=== PATIENT | female | born 1975 | race Caucasian/White ===

== ENCOUNTER 2018-07-27 15:35 | Emergency (ER) | payer OTHER ==
[2018-07-27 19:00] LABS: Absolute Lymphocytes (CBC) 4.4 K/uL (0.7-4.9); Absolute Monocytes 0.5 K/uL (0.1-1.3); Absolute Neutrophil 5.8 K/uL (1.8-8.0); Basophils % 0.8 % (0-1.3); Eosinophils % 2.3 % (0-4.4); Hematocrit 37.9 % (36.0-45.0); Lymphocytes % 40.1 % (15.3-44.8); MPV 9.3 fL (7.6-11.3); Monocytes % 4.4 % (3.3-12.3)
[2018-07-27 19:01] LABS: Protime INR 1.09
--- NOTE | 2018-07-27 19:10 | RAD REPORT ---
EXAM DESCRIPTION: RAD - Chest Single View - 07/27/2018 6:53 pm CLINICAL HISTORY: CHEST PAIN Chest pain. COMPARISON: Chest Pa And Lat (2 Views) dated 11/12/2017; Chest Single View dated 05/26/2017; Chest Sin gle View dated 10/28/2015 FINDINGS: Portable technique limits examination quality. The lungs are grossly clear. The heart is normal in size. No displaced fractures. IMPRESSION: No acute intrathoracic process suspected.
--- NOTE | 2018-07-27 19:11 | EKG ---
Test Date: 2018-07-27 Test Time: 15:46:07 Space Systems Operations Manager: KEELY MEASUREMENT RESULTS: Intervals: Rate: 54 NE: 158 QRSD: 86 QT: 442 QTc: 419 [place]: P: 67 NE: 158 QRS: 64 T: 76 INTERPRETIVE STATEMENTS: Sinus bradycardia Otherwise normal ECG Compared to ECG 05/26/2017 10:13:36 Sinus arrhythmia no longer present Electronically Signed On 07-27-18 19:09:47 CDT by Eder Thomson
[2018-07-27 19:15] LABS: BUN Blood Urea Nitrogen 15 mg/dL (7-18); Bicarbonate 21 mmol/L (21-32); Glucose Level 94 mg/dL (74-106); NT PRO-BNP 52 pg/mL (<125); Potassium 3.6 mmol/L (3.5-5.1); Sodium Level 141 mmol/L (136-145); Troponin (Emerg Dept Use Only) < 0.02 ng/mL (0.0-0.045)
[2018-07-27 19:21] LABS: Urine Blood 1+ (NEG); Urine Glucose NEGATIVE (NEG); Urine Protein NEGATIVE (NEG); Urine Specific Gravity 1.015 (1.005-1.030)
--- NOTE | 2018-07-27 20:55 | ER ---
Nurse's Notes [facility] Name: Thomas Yates Age: 43 yrs Sex: Female : 1975 Arrival Date: 07/27/2018 Time: 15:38 Bed 24 Private MD: Diagnosis: Chest pain, unspecified Presentation: 07/27 15:43 Presenting complaint: Patient states: CP and L upper back pain that is tender, began ss yesterday. Transition of care: patient was not received from another setting of care. Onset of symptoms was July 26, 2018. Risk Assessment: Do you want to hurt yourself or someone else? Patient reports no desire to harm self or others. Initial Sepsis Screen: Does the patient meet any 2 criteria? No. Patient's initial sepsis screen is negative. Does the patient have a suspected source of infection? No. Patient's initial sepsis screen is negative. Care prior to arrival: None. 15:43 Method Of Arrival: Ambulatory ss 15:43 Acuity: SERGIO 3 ss Historical: - Allergies: 15:47 Codeine; ss - PMHx: 15:47 CAD; Anxiety; ss - PSHx: 15:47 Cardiac Stent; Partial hysterectomy; EYE SX; ss - Immunization history:: Adult Immunizations up to date. - Social history:: Smoking status: Patient/guardian denies using tobacco. - Ebola Screening: : Patient denies exposure to infectious person Patient denies travel to an Ebola-affected area in the 21 days before illness onset. - Family history:: not pertinent. - Hospitalizations: : No recent hospitalization is reported. Screenin:33 Abuse screen: Denies threats or abuse. Denies injuries from another. Nutritional rv screening: No deficits noted. Tuberculosis screening: No symptoms or risk factors identified. Fall Risk None identified. Assessment: 18:32 General: Appears in no apparent distress. comfortable, Behavior is calm, cooperative. rv Pain: Complains of pain in chest Pain radiates to left breast Pain began suddenly. Neuro: Level of Consciousness is awake, alert, obeys commands, Oriented to person, place, time, situation. Cardiovascular: Capillary refill < 3 seconds Rhythm is sinus bradycardia. Respiratory: Airway is patent. GI: No signs and/or symptoms were reported involving the gastrointestinal system. : No signs and/or symptoms were reported regarding the genitourinary system. EENT: No signs and/or symptoms were reported regarding the EENT system. Derm: Skin is intact. Musculoskeletal: No signs and/or symptoms reported regarding the musculoskeletal system. 20:22 Reassessment: Patient appears in no apparent distress at this time. Patient and/or rv family updated on plan of care and expected duration. Pain level reassessed. Patient is alert, oriented x 3, equal unlabored respirations, skin warm/dry/pink. Patient denies pain at this time. Vital Signs: 15:47 BP 120 / 78; Pulse 64; Resp 15; Temp 97.6(TE); Pulse Ox 99% on R/A; Weight 67.13 kg; ss Height 5 ft. 2 in. (157.48 cm); Pain 5/10; 19:00 BP 145 / 72; Pulse 42; Resp 15; Temp 98.4; Pulse Ox 100% ; rv 19:30 BP 115 / 64; Pulse 43; Resp 14; Pulse Ox 99% ; rv 15:47 Body Mass Index 27.07 (67.13 kg, 157.48 cm) ED Course: 15:38 Patient arrived in ED. mr 15:45 Triage completed. ss 15:46 EKG done, by construction technology instructor. reviewed by Manuel Cunningham MD. sm3 15:47 Arm band placed on left wrist. ss 18:20 Inserted saline lock: 20 gauge in right forearm, using aseptic technique. Blood rv collected. Patient maintains SpO2 saturation greater than 95% on room air. 18:24 Manuel Cunningham MD is Attending Physician. rn 18:31 Edison Li RN is Primary Nurse. rv 18:33 Patient has correct armband on for positive identification. Bed in low position. Call rv light in reach. Side rails up X 1. Adult w/ patient. security monitor on. Pulse ox on. NIBP on. 18:49 XRAY Chest (1 view) Sent. rv 18:52 XRAY Chest (1 view) In Process Unspecified. EDMS 18:55 Hernán Mcdonald PA is PHCP. cp 21:15 No provider procedures requiring assistance completed. IV discontinued, intact, rv bleeding controlled, No redness/swelling at site. Pressure dressing applied. Administered Medications: No medications were administered Outcome: 21:15 AMA AMA form signed rv 21:15 Condition: good 21:15 Discharge instructions given to Instructed on discharge instructions, follow up and referral plans. Demonstrated understanding of instructions. 21:16 Patient left the ED. rv Signatures: Dispatcher [employer] MAGI NeilPortia Octavio, MD MD yasmin Jackson Shelby RN RN Hernán Lin PA PA cp Montes, Shakira 3 Edison Li RN RN rv
--- NOTE | 2018-07-27 20:55 | EDPHYS ---
Physician Documentation [facility] Name: Thomas Yates Age: 43 yrs Sex: Female : 1975 Arrival Date: 07/27/2018 Time: 15:38 Bed 24 Private MD: ED Physician Manuel Cunningham HPI: 07/27 18:41 This 43 yrs old Female presents to ER via Ambulatory with complaints of Chest rn Pain. 18:41 The patient or guardian reports chest pain that is located primarily in the anterior rn chest wall, left. Onset: yesterday. The pain radiates to Associated signs and symptoms: The patient has no apparent associated signs or symptoms, Pertinent negatives: abdominal pain, cough, diaphoresis, lower extremity swelling, near syncope, palpitations, syncope, vomiting. The chest pain is described as stabbing. Duration: The patient or guardian reports multiple episodes, that are intermittent. Modifying factors: The symptoms are alleviated by nothing. the symptoms are aggravated by nothing. Severity of pain: At its worst the pain was mild in the emergency department the pain is unchanged. The patient has experienced a previous episode. Reports left sided chest pain, radiates to scapula and left shoulder, states feels worse with deep breath and touching area, no fever/cough/sob. Reports had cardiac stent placed several years ago, main symptom at that time was dyspnea. Reports thinks had negative angiogram a little more than a year ago. . Historical: - Allergies: 15:47 Codeine; ss - PMHx: 15:47 CAD; Anxiety; ss - PSHx: 15:47 Cardiac Stent; Partial hysterectomy; EYE SX; ss - Immunization history:: Adult Immunizations up to date. - Social history:: Smoking status: Patient/guardian denies using tobacco. - Ebola Screening: : Patient denies exposure to infectious person Patient denies travel to an Ebola-affected area in the 21 days before illness onset. - Family history:: not pertinent. - Hospitalizations: : No recent hospitalization is reported. ROS: 18:41 Constitutional: Negative for fever, chills, and weight loss, Eyes: Negative for injury, rn pain, redness, and discharge, Neck: Negative for injury, pain, and swelling, Cardiovascular: Negative for palpitations, and edema, Respiratory: Negative for shortness of breath, cough, wheezing Abdomen/GI: Negative for abdominal pain, nausea, vomiting, diarrhea, and constipation, Back: Negative for injury and pain, MS/Extremity: Negative for injury and deformity, Skin: Negative for injury, rash, and discoloration, Neuro: Negative for headache, weakness, numbness, tingling, and seizure. Exam: 18:40 ECG was reviewed by the Attending Physician. rn 18:41 Constitutional: This is a well developed, well nourished patient who is awake, alert, rn and in no acute distress. Head/Face: Normocephalic, atraumatic. Eyes: Pupils equal round and reactive to light, extra-ocular motions intact. Lids and lashes normal. Conjunctiva and sclera are non-icteric and not injected. Cornea within normal limits. Periorbital areas with no swelling, redness, or edema. Cardiovascular: Regular rhythm, bradycardic, no murmur Respiratory: Lungs have equal breath sounds bilaterally, clear to auscultation. No increased work of breathing, no retractions or nasal flaring. Abdomen/GI: Soft, non-tender Skin: Warm, dry MS/ Extremity: Pulses equal, no cyanosis. Neurovascular intact. Full, normal range of motion. Equal circumference. Neuro: Awake and alert, GCS 15, oriented to person, place, time, and situation. Cranial nerves II-XII grossly intact. Motor strength 5/5 in all extremities. Sensory grossly intact. Cerebellar exam normal. Vital Signs: 15:47 BP 120 / 78; Pulse 64; Resp 15; Temp 97.6(TE); Pulse Ox 99% on R/A; Weight 67.13 kg; ss Height 5 ft. 2 in. (157.48 cm); Pain 5/10; 19:00 BP 145 / 72; Pulse 42; Resp 15; Temp 98.4; Pulse Ox 100% ; rv 19:30 BP 115 / 64; Pulse 43; Resp 14; Pulse Ox 99% ; rv 15:47 Body Mass Index 27.07 (67.13 kg, 157.48 cm) ss MDM: 18:24 Patient medically screened. 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 When talked to her about possible admission for chest pain given her cardiac hx and stent, she wavered and states not sure if she wants to stay, let me do bloodwork, explained that bloodwork likely not going to show etiology given doesn't sounds like NM, but still could be cardiac pain. She understands and is going to discuss with family. Will discuss again when results return.. 20:45 Data reviewed: vital signs, nurses notes, lab test result(s), EKG, radiologic studies, cp plain films. 20:45 Test interpretation: by ED physician or midlevel provider: ECG, plain radiologic cp studies. 07/27 18:40 Order name: Basic Metabolic Panel; Complete Time: 20:41 rn 07/27 18:40 Order name: CBC with Diff; Complete Time: 20:41 rn 07/27 18:40 Order name: NT PRO-BNP; Complete Time: 20:41 rn 07/27 18:40 Order name: PT-INR; Complete Time: 20:41 rn 07/27 18:40 Order name: Troponin (emerg Dept Use Only); Complete Time: 20:41 rn 07/27 18:46 Order name: D-Dimer; Complete Time: 20:41 rn 07/27 15:48 Order name: EKG; Complete Time: 15:48 ss 07/27 15:48 Order name: EKG - Nurse/Tech; Complete Time: 15:48 ss 07/27 18:40 Order name: XRAY Chest (1 view); Complete Time: 20:41 rn 07/27 18:40 Order name: Cardiac monitoring; Complete Time: 18:49 rn 07/27 18:40 Order name: IV Saline Lock; Complete Time: 18:49 rn 07/27 18:40 Order name: Labs collected and sent; Complete Time: 18:49 rn 07/27 18:56 Order name: Urine Dipstick--Ancillary (enter results); Complete Time: 20:41 bd 07/27 18:56 Order name: Urine --Ancillary (enter results); Complete Time: 20:41 bd 07/27 18:40 Order name: O2 Per Protocol; Complete Time: 18:49 rn 07/27 18:40 Order name: O2 Sat Monitoring; Complete Time: 18:49 rn EC:40 Rate is 54 beats/min. Rhythm is regular. QRS [place] is Normal. ME interval is normal. QRS rn interval is normal. QT interval is normal. No Q waves. T waves are Normal. No ST changes noted. Clinical impression: Sinus bradycardia. Interpreted by me. Reviewed by me. Administered Medications: No medications were administered Disposition: 07/27/18 20:54 Patient has left against medical advice. Impression: Chest pain, unspecified. - Patients states they are going to Home. - Condition is Stable. - Discharge Instructions: Nonspecific Chest Pain, Aspirin and Your Heart. Follow up: Private Physician; When: Tomorrow; Reason: Recheck today's complaints. - Problem is new. - Symptoms have improved. Addendum: 07/29/2018 07:01 Co-signature as Attending Physician, Manuel Cunningham MD. r n Signatures: Dispatcher [employer] EDMS Manuel Cunningham MD MD rn Smirch, Shelby, RN RN ss Hernán Mcdonald PA PA cp Vicente, Ronaldo, RN RN rv Corrections: (The following items were deleted from the chart) 07/27 21:16 20:54 07/27/2018 20:54 Patients has left against medical advice. Impression: Chest rv pain, unspecified. Patient states they are going to Home. Condition is Stable. Follow up: Private Physician; When: Tomorrow; Reason: Recheck today's complaints. Problem is new. Symptoms have improved. cp
[2018-07-28 04:42] VITALS: TEMP 98.4
[2018-07-28 04:43] VITALS: BP 115/64; O2SAT 99
== END 2018-07-27 21:16 | disposition left against medical advice (07) ==
LOC: ER 15:35
DX: R07.9 Chest pain, unspecified (principal); I25.10 Atherosclerotic heart disease of native coronary artery without angina pectoris; F41.9 Anxiety disorder, unspecified; Z88.5 Allergy status to narcotic agent; Z53.29 Procedure and treatment not carried out because of patient's decision for other reasons
CPT/HCPCS: 36415; 71045; 80048; 81003; 81025; 83880; 84484; 85025; 85379; 85610; 93005; 99285